=== PATIENT | female | born 1985 | race Caucasian/White ===

== ENCOUNTER 2017-05-05 14:56 | Emergency (ER) | payer BC ==
[2017-05-05 15:27] VITALS: RESP 18; TEMP 98.5
--- NOTE | 2017-05-05 15:42 | ED ---
General Adult HPI - General Chief complaint: Abdominal Pain Stated complaint: severe pelvic pain Time Seen by Provider: 05/05/17 15:31 Source: patient, RN notes reviewed, old records reviewed Mode of arrival: ambulatory Limitations: no limitations - History of Present Illness Initial comments: This is a 31-year-old female ER for evaluation of suprapubic abdominal pain. Patient has history of endometriosis but states this pain is much more severe. Patient has no prior surgical history. No fevers. No nausea vomiting. Denies vaginal bleeding or vaginal discharge, no urinary discomfort. Patient states severe sudden onset of pain in her right superpubic area, mildly nauseous with no vomiting. She has no pain medication at home for pain control Adolfo modifying factors. Worse with any little movement. - Related Data Home Medications Medication Instructions Recorded Confirmed Cephalexin [Keflex] 500 mg PO Q8HR 05/05/17 05/05/17 Cyanocobalamin (Vitamin B-12) 1,000 mcg PO DAILY 05/05/17 05/05/17 [Vitamin B-12] HYDROcodone/APAP 10-325MG [[place] 0.5 tab PO ONCE PRN 05/05/17 05/05/17 10-325] Norgestimate-Ethinyl Estradiol 1 tab PO DAILY 05/05/17 05/05/17 [Trinessa Tablet] Oxybutynin Chloride [Ditropan] 5 mg PO BID 05/05/17 05/05/17 Allergies Allergy/AdvReac Type Severity Reaction Status Date / Time adhesive tape Allergy Rash/Hives Verified 05/05/17 15:40 Latex, Natural Rubber Allergy Rash/Hives Verified 05/05/17 15:39 Review of Systems ROS Statement: Those systems with pertinent positive or pertinent negative responses have been documented in the HPI. ROS Other: All systems not noted in ROS Statement are negative. Past Medical History Additional Past Medical History / Comment(s): endometriosis, ovarian cysts History of Any Multi-Drug Resistant Organisms: None Reported Past Surgical History: Section, Tonsillectomy Additional Past Surgical History / Comment(s): bilateral ankles, laparoscopy, leap Past Psychological History: No Psychological Hx Reported Smoking Status: Current every day smoker Past Alcohol Use History: Rare Past Drug Use History: None Reported General Exam Limitations: no limitations General appearance: alert, in no apparent distress Head exam: Present: atraumatic, normocephalic, normal inspection Eye exam: Present: normal appearance, PERRL, EOMI. Absent: scleral icterus, conjunctival injection, periorbital swelling ENT exam: Present: normal exam, mucous membranes moist Neck exam: Present: normal inspection. Absent: tenderness, meningismus, lymphadenopathy Respiratory exam: Present: normal lung sounds bilaterally. Absent: respiratory distress, wheezes, rales, rhonchi, stridor Cardiovascular Exam: Present: regular rate, normal rhythm, normal heart sounds. Absent: systolic murmur, diastolic murmur, rubs, gallop, clicks GI/Abdominal exam: Present: soft, normal bowel sounds. Absent: distended, tenderness, guarding, rebound, rigid Extremities exam: Present: normal inspection, full ROM, normal capillary refill. Absent: tenderness, pedal edema, joint swelling, calf tenderness Back exam: Present: normal inspection Neurological exam: Present: alert, oriented X3, CN II-XII intact Psychiatric exam: Present: normal affect, normal mood Skin exam: Present: warm, dry, intact, normal color. Absent: rash Course Vital Signs 05/05/17 15:24 Temperature 98.5 F Pulse Rate 78 Respiratory 18 Rate Blood Pressure 123/71 O2 Sat by Pulse 99 Oximetry - Reevaluation(s) Reevaluation #1: 05/05/17 16:44 Patient has adequate pain control at this time Medical Decision Making - Medical Decision Making Plan I female at ER for evaluation is reviewed about February, at this point patient has good pain relief. A swig of pain medication for discharge, patient informed to follow-up with OB, patient understands and can be discharged - Lab Data Lab Results 05/05/17 05/05/17 Range/Units 15:41 15:41 Urine Color Yellow Urine Appearance Cloudy H (Clear) Urine pH 6.5 (5.0-8.0) Ur Specific [place] 1.011 (1.001-1.035) Urine Protein Negative (Negative) Urine Glucose (UA) Negative (Negative) Urine Ketones Negative (Negative) Urine Blood Negative (Negative) Urine Nitrite Negative (Negative) Urine Bilirubin Negative (Negative) Urine Urobilinogen <2.0 (<2.0) mg/dL Ur Leukocyte Esterase Small H (Negative) Urine RBC 1 (0-5) /hpf Urine WBC 2 (0-5) /hpf Ur Squamous Epith Cells 3 (0-4) /hpf Urine Mucus Occasional H (None) /hpf Urine HCG, Qual Not Detected (Not Detectd) - Radiology Data Radiology results: report reviewed (Ultrasound shows complex cyst, recommend urgent follow-up), image reviewed Disposition Clinical Impression: Abdominal pain, Ovarian cyst Disposition: HOME SELF-CARE Instructions: Ovarian Cyst (ED) Referrals: Khari Marion MD [Primary Care Provider] - 1-2 days
[2017-05-05 15:57] LABS: Appearance,Urine Cloudy (Clear); Bilirubin,Urine Negative (Negative); Glucose,Urine (UA) Negative (Negative); Ketones,Urine Negative (Negative); Leukocyte Esterase,Urine Small (Negative); Mucus,Urine Occasional /hpf; Nitrite,Urine Negative (Negative); PH, Urine 6.5 (5.0-8.0); Particle Count 5346; Protein,Urine Negative (Negative); RBC,Urine 1 /hpf (0-5); Specific Gravity,Urine 1.011 (1.001-1.035); Squamous Epithelial Cell,Urine 3 /hpf (0-4); UA Billing (MACRO vs. MICRO) MICRO; Urobilinogen,Urine <2.0 mg/dL (<2.0); WBC,Urine 2 /hpf (0-5)
--- NOTE | 2017-05-05 16:43 | US ---
EXAMINATION TYPE: US transvaginal DATE OF EXAM: 05/05/2017 COMPARISON: NONE CLINICAL HISTORY: Pain. Pain x 1 day. TECHNIQUE: Transvaginal (TV) Date of LMP: 04/25/2017 EXAM MEASUREMENTS: Uterus: 7.1 x 4.5 x 4.7 cm Endometrial Stripe: 0.75 cm Right Ovary: 4.2 x 1.9 x 2.0 cm Left Ovary: 2.9 x 1.3 x 2.0 cm 1. Uterus: Retroverted 2. Endometrium: wnl 3. Right Ovary: complex area visualized measuring 1.5 x 1.8 x 1.4cm anechoic area visualized measuri ng 1.1 x 1.4 x 1.3 cm 4. Left Ovary: follicles visualized Spectral, color and waveform doppler imaging shows good arterial and venous flow within the ovaries ; . 5. Bilateral Adnexa: wnl 6. Posterior cul-de-sac: Fluid visualized Uterus is heterogeneous appearance and retroverted in shape. Endometrium is not suspiciously thickene d. There are small to moderate amount of free fluid in pelvic cul-de-sac which is not completely anec hoic, blood product cannot be excluded. Right ovary is slightly asymmetrically more prominent versus left ovary. There is slightly lobulated cystic lesion with heterogeneous echoes felt to reflect septations measuring 1.5 x 1.8 x 1.4 cm. Ther e is 1.4 cm simple appearing cyst or prominent follicle marked by technologist. Left ovary is unremar kable with simple peripheral follicles. IMPRESSION: A 1.8 cm nonsimple cyst right ovary is noted, consider hemorrhagic cyst, cystic neoplasm is not excluded. Short-term ultrasound follow-up in 6 weeks' time is advised to further evaluate. Sma ll to moderate amount of free fluid in pelvic cul-de-sac noted., Blood product not excluded.
[2017-05-05 17:06] VITALS: BP 118/58; PULSE 92
== END 2017-05-05 17:10 | disposition home or self-care (01) ==
LOC: EC 14:56
DX: N83.201 Unspecified ovarian cyst, right side (principal); F17.200 Nicotine dependence, unspecified, uncomplicated; Z87.42 Personal history of other diseases of the female genital tract; Z91.040 Latex allergy status; Z91.048 Other nonmedicinal substance allergy status; Z79.899 Other long term (current) drug therapy
CPT/HCPCS: 76830; 81001; 81025; 87086; 93975; 99284

== ENCOUNTER → 2022-07-12 | Outpatient (CLI) | payer BC ==
--- NOTE | 2022-07-12 11:41 | US ---
EXAMINATION TYPE: US pelvic complete DATE OF EXAM: 07/12/2022 COMPARISON: CLINICAL HISTORY: N83.299 OVARIAN CYST. Patient states a cyst was visualized bilaterally x 6 weeks ag o at an outside imaging facility. TECHNIQUE: Transabdominal (TA). Transabdominal sonographic images of the pelvis were acquired. Date of LMP: 06/20/2023, EXAM MEASUREMENTS: Uterus: 7.9 x 5.4 x 4.5 cm Endometrial Stripe: 0.8 cm Right Ovary: 2.8 x 1.9 x 1.9 cm Left Ovary: 2.9 x 2.0 x 1.9 cm 1. Uterus: Anteverted Heterogenous 2. Endometrium: wnl 3. Right Ovary: follicles seen 4. Left Ovary: follicles seen 5. Bilateral Adnexa: wnl 6. Posterior cul-de-sac: free fluid IMPRESSION: No significant abnormality appreciated. Small amount of free fluid noted within the cul-de-sac.
== END | disposition home or self-care (01) ==
LOC: RADUSWWP 10:51
PROVIDERS: ATTEND Obstetrics & Gynecology
DX: N83.292 Other ovarian cyst, left side (principal)
CPT/HCPCS: 76856

== ENCOUNTER 2022-08-22 07:53 | Day surgery (SDC) | payer BC ==
[2022-08-16 13:31] VITALS: BMI 24.9
--- NOTE | 2022-08-21 19:24 | P.HPOB ---
History of Present Illness H&P Date: 08/21/22 Chief Complaint: Pelvic pain, endometriosis, dysmenorrhea This is a 37 y.o. female, 1, para 1, who presents for Davinci-assisted diagnostic laparoscopy, possible excision of endometriosis, possible lysis of adhesions, possible drainage of ovarian cysts, and possible laparotomy. She complains of a 2 year history of cyclical throbbing left lower quadrant that lasts for about 5 days and occurs monthly starting right before her cycle and goes away after her cycle ends. It's associated with rectal pressure, fatigue and bloating. Her menses are occuring every 24-60 days and lasting 5 days, but heavy to where she has to wear a pad and tampon. She was on oral contraceptives and stopped about 2 years ago after she started thyroid medication as she felt she was on too many medications. She states she has been unable to have intercourse due to the pain. OB Hx: . History of 1 section. 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 History of Depo- Lupron in past. No history of STDs. Currently using withdrawal for BC. Social History: Single. Works at [employer]. Review of Systems Constitutional: Reports night sweats, Reports weight loss, Denies chills, Denies fever Eyes: denies blurred vision, denies pain Ears, nose, mouth and throat: Denies headache, Denies sore throat Cardiovascular: Denies chest pain, Denies shortness of breath Respiratory: Denies cough Gastrointestinal: Reports abdominal pain, Reports nausea Genitourinary: Reports dysmenorrhea, Reports menorrhagia, Reports pelvic pain, Reports urinary frequency Menstruation: Reports menses 1-7 days, Reports menses variable, Reports period heavy Musculoskeletal: Reports low back pain, Reports muscle cramps Integumentary: Denies pruritus, Denies rash Neurological: Denies numbness, Denies weakness Psychiatric: Reports change in libido, Denies anxiety, Denies depression Endocrine: Reports fatigue, Reports flushing, Reports weight change Past Medical History Past Medical History: Thyroid Disorder Additional Past Medical History / Comment(s): endometriosis, ovarian cysts,BERTHA'S, Pernicious anemia, overactive bladder History of Any Multi-Drug Resistant Organisms: None Reported Past Surgical History: Section, Orthopedic Surgery, Tonsillectomy Additional Past Surgical History / Comment(s): bilateral ankle SURGERY , laparoscopy, leap procedure, egd Past Anesthesia/Blood Transfusion Reactions: No Reported Reaction Past Psychological History: No Psychological Hx Reported Smoking Status: Current every day smoker Past Alcohol Use History: Rare Past Drug Use History: None Reported - Past Family History Mother Family Medical History: Deep Vein Thrombosis (DVT) Father Family Medical History: Cancer Medications and Allergies Home Medications Medication Instructions Recorded Confirmed Type Oxybutynin Chloride [Ditropan] 5 mg PO BID 05/05/17 08/16/22 History Cyanocobalamin [Vitamin B-12 1,000 mcg SQ QMONTHLY 08/16/22 08/16/22 History Injection] Levothyroxine Sodium [Synthroid] 37.5 mcg PO DAILY 08/16/22 08/16/22 History Allergies Allergy/AdvReac Type Severity Reaction Status Date / Time adhesive tape Allergy Rash/Hives Verified 11/26/21 14:18 ketorolac [From Toradol] Allergy BLISTERS Verified 08/16/22 13:07 Latex, Natural Rubber Allergy Rash/Hives Verified 08/16/22 12:56 hydrocodone [From [place]] AdvReac FELT HYPER Verified 08/16/22 13:06 UNABLE TO FUNCTION" Exam Osteopathic Statement: *. No significant issues noted on an osteopathic structural exam other than those noted in the History and Physical/Consult. HEENT: within normal limits Heart: regular rate and rhythm Lungs: clear to auscultation bilaterally Abdomen: soft, tender LLQ, no masses Pelvic: uterus small, retroverted, nont-tender, no adnexal masses, tenderness on left Extremities: negative Niecy's Results Pelvic ultrasound showed uterus measuring 7.9 x 5.4 x 4.5 cm with lining thickness of 0.8 cm and normal follicles on bilateral ovaries. Assessment and Plan (1) Pelvic pain Status: Acute Code(s): R10.2 - PELVIC AND PERINEAL PAIN SNOMED Code(s): 10642924 (2) Endometriosis Status: Acute Code(s): N80.9 - ENDOMETRIOSIS, UNSPECIFIED SNOMED Code(s): 221267507 (3) Dysmenorrhea Status: Acute Code(s): N94.6 - DYSMENORRHEA, UNSPECIFIED SNOMED Code(s): 392725117 (4) Menorrhagia with irregular cycle Status: Acute Code(s): N92.1 - EXCESSIVE AND FREQUENT MENSTRUATION WITH IRREGULAR CYCLE SNOMED Code(s): 012635928 Plan: Proceed with Davinci-assisted diagnostic laparoscopy, possible excision or ablation of endometriosis, possible lysis of adhesions, possible drainage of ovarian cysts, and possible laparotomy. I have discussed the risks, benefits, and alternative therapies for the above- mentioned procedure and for both sedation/anesthesia as well as necessary blood products administration, if indicated, as they pertain to this patient. The patient has indicated her understanding and acceptance of the risks and procedures discussed.
[~2022-08-22 07:53] MED LIST: DEXAMETHASONE SOD PHOSPHATE 4 MG/ML 1 ML VIAL IV ONE; LACTATED RINGERS 1,000 ML IV SCH; LIDOCAINE 1% (10MG/ML) FOR IV START INTRADERMA PRN; ONDANSETRON 4 MG/2 ML VIAL IVP ONE; fentaNYL (PF) 50 MCG/ML 2 ML AMP IV PRN
[2022-08-22] MEDS ORDERED: LIDOCAINE 4% LTA KIT (4 ML) TOPICAL ONE (09:35)
[2022-08-22] MEDS ORDERED: MIDAZOLAM 2 MG/2 ML VIAL ONE (09:35)
[2022-08-22] MEDS ORDERED: NEOSTIGMINE 1 MG/ML 10 ML VIAL ONE (09:35)
[2022-08-22] MEDS ORDERED: SUCCINYLCHOLINE CHLORIDE 200 MG/10 ML VIAL IV ONE (09:35)
[2022-08-22] MEDS ORDERED: LIDOCAINE 1% (10MG/ML) FOR IV START ONE (09:35)
[2022-08-22] MEDS ORDERED: fentaNYL (PF) 50 MCG/ML 2 ML AMP ONE (09:35)
[2022-08-22] MEDS ORDERED: INDOCYANINE GREEN 25 MG VIAL IV ONE (09:35)
[2022-08-22] MEDS ORDERED: PROPOFOL 10 MG/ML 20 ML VIAL IV ONE (09:35)
[2022-08-22] MEDS ORDERED: GLYCOPYRROLATE 0.2 MG/ML 2 ML VIAL ONE (09:35)
[2022-08-22] MEDS ORDERED: ROCURONIUM 10 MG/ML (5 ML VIAL) IV ONE (09:35)
[2022-08-22] MEDS ORDERED: BUPIVACAINE (PF) 0.25% 30 ML VIAL SQ ONE ×2 (09:49→11:02)
[2022-08-22] MEDS ORDERED: LACTATED RINGERS 1,000 ML IV ONE (10:43)
--- NOTE | 2022-08-22 11:25 | P.OP ---
Date of Procedure: 08/22/22 Preoperative Diagnosis: Pelvic pain Dysmenorrhea History of endometriosis Postoperative Diagnosis: Pelvic pain Dysmenorrhea Endometriosis Pelvic adhesions Procedure(s) Performed: Laparoscopy with da Melina Excision and ablation of endometriosis Lysis of adhesions Anesthesia: GLORIA Surgeon: Juany Rangel Estimated Blood Loss (ml): 10 Pathology: other (Peritoneum with endometriosis) Condition: stable Disposition: same day Indications for Procedure: This is a 37 y.o. female, 1, para 1, who presents for Davinci-assisted diagnostic laparoscopy, possible excision of endometriosis, possible lysis of adhesions, possible drainage of ovarian cysts, and possible laparotomy. She complains of a 2 year history of cyclical throbbing left lower quadrant that lasts for about 5 days and occurs monthly starting right before her cycle and goes away after her cycle ends. It's associated with rectal pressure, fatigue and bloating. Her menses are occuring every 24-60 days and lasting 5 days, but heavy to where she has to wear a pad and tampon. She was on oral contraceptives and stopped about 2 years ago after she started thyroid medication as she felt she was on too many medications. She states she has been unable to have intercourse due to the pain. Operative Findings: Liver appeared very enlarged extending downward into the pelvis region. Omental adhesions are noted anteriorly to the right side of the pelvis. Endometriosis was noted on the left ovary, extensively in the left ovarian fossa, left uterosacral ligament, and cul-de-sac region. Also endometriosis was noted in the right ovarian fossa and right uterosacral ligament. Description of Procedure: The patient was taken to the operating room where she is placed in the dorsal lithotomy position on a Huggie blanket. She is prepped and draped in the normal sterile fashion. Her bladder is drained with a Swenson catheter which is left in place. Next a weighted speculum was placed in the patient's vagina and a right angle retractor was used to visualize the anterior lip of the cervix. This was grasped with a single-tooth tenaculum. The cervix was gently dilated with the Lanier dilator and then the uterus is sounded to 7 cm. The kroner uterine manip ulator is then inserted through the cervix and the balloon is inflated The single-tooth tenaculum is removed and speculum is removed from the vagina. Gloves are changed and attention is turned to the abdomen. The uterus is anteverted and marked on the lower abdomen with a pen. A small incision is made approximately 2 cm above the umbilicus for about 10 cm above the marked uterus. A 5 mm disposable blade this trocar is then inserted under direct visualization using low flow. Once inside the insert is removed and the camera was replaced. Pneumoperitoneum is achieved. The patient is then placed and 25 of Trendelenburg. The above-noted findings are made and pictures are taken. Next an incision is made in the right lower abdomen approximately 8 cm lateral to the umbilicus and approximately 1 cm below the umbilicus. An 8 mm da Melina trocar is then placed through the incision under direct visualization. The camera was then placed through this port and the same area is marked on the left side of the abdomen approximately 8 cm lateral to the umbilicus and approximately 1 cm below the umbilicus. A small incision is made in this area and then an 8 mm da Melina port is placed. Next a small cut was made in the left upper quadrant approximately 5 cm away from the midline port and the left abdominal port and a 12 mm accessory trocar was placed under direct visualization. Next the midline supraumbilical port is removed and replaced with an 8 mm da Melina trocar under direct visualization. The legs were lowered. Next the robot is docked and the trochars were attached. A [place] forcep with bipolar energy is placed through the left arm and monopolar scissors are placed through the right arm. A grasper is placed through the accessory port. Next monopolar scissors are used to cauterize and excise the omental adhesion to the anterior abdominal wall. The pelvic contents are then inspected. ICG is given by anesthesia and firefly a mode is used to visualize endometriosis implants in the pelvic region. The left ovary is retracted by assistance and the peritoneum in the left ovarian fossa is then grasped with the [place] forcep and brought away from other structures and gently opened with monopolar scissors. The scissors are used to carefully cut away the peritoneum from the left ovarian fossa region up to the uterosacral ligament taking care to pull the peritoneum away from other structures and careful to observe the ureter. Small amounts of monopolar cutting cautery are used during this period areas of endometriosis had also excised off of the left uterosacral ligament using monopolar cautery and cutting. Peritoneum is also excised from the right ovarian fossa in the same manner after noting where the endometriosis implants were using firefly. The posterior cul-de-sac also had some implants of endometriosis that were excised in the same manner taking care to go very superficially avoiding the rectal area. There were some endometriosis implants on the left ovary that were cauterized with the monopolar cautery. Excellent hemostasis was noted at the end of procedure and irrigation was carried out with normal saline. Pictures were again taken at the end of the procedure. After pictures were taken the instruments were removed from the trochars and the camera was removed and then the pneumoperitoneum was released. The robot was undocked. The incisions were then sutured with 4-0 undyed Vicryl suture in a subcuticular fashion and then the incisions were injected with quarter percent Marcaine. Approximately 7 mL were used. The kroner uterine manipulator was deflated and removed and the Swenson catheter is removed. Approximately 350 mL of clear urine was noted at the end of the procedure. All sponge and needle counts are correct.
[2022-08-22 11:35] VITALS: TEMP 97.2
[2022-08-22 11:36] VITALS: RESP 16
[2022-08-22] MEDS ORDERED: Acetaminophen-Codeine 300-30mg TAB ONE (12:15)
[2022-08-22] MEDS ORDERED: Acetaminophen-Codeine 300-30mg TAB PO ONE (12:19)
[2022-08-22 12:42] VITALS: BP 113/74; PULSE 63
== END 2022-08-22 13:27 | disposition home or self-care (01) ==
LOC: OR 07:53
PROVIDERS: ATTEND Obstetrics & Gynecology
DX: N80.9 Endometriosis, unspecified (principal); N73.6 Female pelvic peritoneal adhesions (postinfective); N94.6 Dysmenorrhea, unspecified; E07.9 Disorder of thyroid, unspecified; N83.209 Unspecified ovarian cyst, unspecified side; D51.0 Vitamin B12 deficiency anemia due to intrinsic factor deficiency; N32.81 Overactive bladder; F10.90 Alcohol use, unspecified, uncomplicated; F17.200 Nicotine dependence, unspecified, uncomplicated; E06.3 Autoimmune thyroiditis; Z98.891 History of uterine scar from previous surgery; Z87.42 Personal history of other diseases of the female genital tract; Z98.890 Other specified postprocedural states; Z90.89 Acquired absence of other organs; Z83.2 Family history of diseases of the blood and blood-forming organs and certain disorders involving the immune mechanism; Z79.890 Hormone replacement therapy; Z79.899 Other long term (current) drug therapy; Z88.5 Allergy status to narcotic agent; Z91.040 Latex allergy status
CPT/HCPCS: 81025; 88305; 58662; J2250; J0330; J1100; J2710; J0690; J2405; J3010; J2704